=== PATIENT | male | born 1975 | race Caucasian/White ===

== ENCOUNTER 2021-05-19 13:06 | Emergency (ER) | payer OTHER ==
[2021-05-19 13:31] LABS: HEMOGLOBIN 16.9 gm/dl (14.0-17.5); RED BLOOD COUNT 5.46 M/UL (4.20-5.50); WHITE BLOOD COUNT 2.6 K/UL (4.5-11.0)
[2021-05-19 13:56] LABS: BUN/CREATININE RATIO 9 (0-10)
[2021-05-19] MEDS ORDERED: FLEET ENEMA 13133 ML PR (15:42)
[2021-05-19] MEDS ORDERED: CITROMA296 ML PO (15:42)
== END 2021-05-19 15:54 | disposition home or self-care (01) ==
LOC: ER1 13:06
PROVIDERS: Nurse Practitioner
DX: K59.00 Constipation, unspecified (principal); F17.290 Nicotine dependence, other tobacco product, uncomplicated
CPT/HCPCS: 71046; 80053; 81001; 82550; 82553; 83690; 83735; 83874; 84484; 85025; 93005; 99284; Q9967